=== PATIENT | female | born 1990 | race African-American/Black ===

== ENCOUNTER 2019-01-10 00:42 | Emergency (ER) | payer OTHER ==
[~2019-01-10] VITALS: Ht 162.6 cm; Wt 65.8 kg
[2019-01-10 01:01] VITALS: BP 142/86
[2019-01-10] MEDS ORDERED: IPRATROPIUM BROM 0.5 MG/2.5ML INH SOL NEB ONE (02:45)
[2019-01-10] MEDS ORDERED: ALBUTEROL SULF 2.5 MG/0.5ML(0.5%) NEB SOLN NEB ONE (02:45)
== END 2019-01-10 03:55 | disposition home or self-care (01) ==
LOC: ER 00:47
DX: J20.9 Acute bronchitis, unspecified (principal)
CPT/HCPCS: 71046; 94640; 99283; J7611